=== PATIENT | male | born 1975 | race Caucasian/White ===

== ENCOUNTER 2019-06-02 05:14 | Inpatient (IN) | payer MEDICAID ==
[~2019-06-02] VITALS: Ht 177.8 cm; Wt 86.4 kg
[2019-06-02 05:28] VITALS: BP 103/63
[2019-06-02] MEDS ORDERED: KETOROLAC 30 MG/1 ML IV PRN (06:00)
[2019-06-02] MEDS ORDERED: NICOTINE 14MG/24 HR PATCH.TD24 TD SCH (06:00)
[2019-06-02] MEDS ORDERED: HYDROmorphone 2 MG/ML, 1ML IVPush PRN (06:00)
[2019-06-02] MEDS ORDERED: ACETAMINOPHEN 325 MG TABLET PO PRN (06:00)
[2019-06-02] MEDS ORDERED: ONDANSETRON 2MG/ML, 2ML IVPush PRN (06:00)
[2019-06-02] MEDS: LACTATED RINGERS 1,000 ML IV SCH ×2 (06:08→16:00)
[2019-06-02 06:37] LABS: BASOPHILS # (AUTO) 0.05 x10^3/uL (0-0.1); BASOPHILS % (AUTO) 1 % (0-1); EOSINOPHILS % (AUTO) 4 % (1-7); LYMPHOCYTES # (AUTO) 1.63 x10^3/uL (1-3.4); LYMPHOCYTES % (AUTO) 32 % (22-44); MD NO; MEAN CORPUSCULAR HEMOGLOBIN 32.5 pg (27.5-34.5); MEAN CORPUSCULAR HGB CONC 33.6 g/dL (33.2-36.2); MEAN CORPUSCULAR VOLUME 96.8 fL (81-97); MEAN PLATELET VOLUME 7.4 fL (7.4-10.4); MONOCYTES # (AUTO) 0.55 x10^3/uL (0.2-0.8); MONOCYTES % (AUTO) 11 % (2-9); NEUTROPHILS # (AUTO) 2.69 x10^3/uL (1.8-6.8); NEUTROPHILS % (AUTO) 53 % (42-75); PLATELET COUNT 215 x10^3/uL (130-400); RED BLOOD COUNT 4.51 x10^6/uL (4.38-5.82); RED CELL DISTRIBUTION WIDTH 12.9 % (9.4-14.8)
[2019-06-02 06:46] LABS: INTERNATIONAL NORMALIZED RATIO 1.02 (0.93-1.1); PROTHROMBIN TIME 10.8 Seconds (9.6-11.5)
[2019-06-02 06:48] LABS: ALANINE AMINOTRANSFERASE 357 U/L (12-78); ALBUMIN 3.2 g/dL (3.4-5.0); ANION GAP 5 mmol/L (5-15); CALCIUM 8.3 mg/dL (8.5-10.1); CHLORIDE 112 mmol/L (98-107); CREATININE 0.92 mg/dL (0.7-1.3)
[2019-06-02 06:51] LABS: ALKALINE PHOSPHATASE 120 U/L (45-117); BILIRUBIN,TOTAL 2.9 mg/dL (0.2-1.0); TOTAL PROTEIN 6.4 g/dL (6.4-8.2)
[2019-06-02 07:06] VITALS: BP 108/64
[2019-06-02] MEDS: METRONIDAZOLE PMX 500MG/100ML 100 ML IV SCH ×2 (09:21→16:34)
[2019-06-02] MEDS ORDERED: GLUCAGON 1 MG ONE (09:57)
[2019-06-02] MEDS ORDERED: OMNIPAQUE 350 MG/ML, 50 ML BOTTLE ONE (11:00)
[2019-06-02] MEDS ORDERED: ONDANSETRON 2MG/ML, 2ML ONE (11:04)
[2019-06-02] MEDS ORDERED: MIDAZOLAM 1 MG/ML, 2ML ONE (11:04)
[2019-06-02] MEDS ORDERED: KETOROLAC 30 MG/1 ML ONE (11:04)
[2019-06-02] MEDS ORDERED: SUGAMMADEX 200 MG/2 ML IVPush ONE (11:04)
[2019-06-02] MEDS ORDERED: ROCURONIUM 10MG/ML,5ML ONE (11:04)
[2019-06-02] MEDS ORDERED: PROPOFOL 10 MG/ML, 20ML ONE (11:04)
[2019-06-02] MEDS ORDERED: DEXAMETHASONE 4 MG/ML, 1ML ONE (11:04)
[2019-06-02] MEDS ORDERED: FENTANYL PF 250 MCG/5ML ONE (11:05)
[2019-06-02] MEDS ORDERED: FENTANYL PF 100 MCG/2ML IV PRN (12:00)
[2019-06-02] MEDS ORDERED: hydrALAzine 20 MG/ML, 1ML IV PRN (12:00)
[2019-06-02] MEDS ORDERED: CEFTRIAXONE PMX 1GM/50ML 50 ML IV SCH (12:00)
[2019-06-02] MEDS ORDERED: HALOPERIDOL 5 MG/ML IV PRN (12:00)
[2019-06-02] MEDS ORDERED: ALBUTEROL SULFATE 2.5 MG/3 ML NPPB PRN (12:00)
[2019-06-02] MEDS ORDERED: HYDROmorphone 1 MG/ML, 1ML INJ IVPush PRN (12:00)
[2019-06-02] MEDS ORDERED: MEPERIDINE/PF 25MG/ML,1ML IVPush PRN (12:00)
[2019-06-02] MEDS ORDERED: OXYcodone 5 MG/5 ML ORAL.SOL UDC PO PRN (12:00)
[2019-06-02 14:52] VITALS: BP 125/79
[2019-06-02] MEDS ORDERED: CEFD300C37 PO (15:08)
[2019-06-02] MEDS ORDERED: FLU VACC QS2019-20 36MOS UP/PF 0.5 ML IM-VACC ONE (16:00)
== END 2019-06-02 17:25 | disposition home or self-care (01) ==
LOC: 4NE 05:14
PROVIDERS: ADMIT Family Medicine; ATTEND Family Medicine
PROC: BF141ZZ Fluoroscopy of Gallbladder, Bile Ducts and Pancreatic Ducts using Low Osmolar Contrast (ICD-10-PCS; 2019-06-02)
PROC: 0FC98ZZ Extirpation of Matter from Common Bile Duct, Via Natural or Artificial Opening Endoscopic (ICD-10-PCS; principal; 2019-06-02 11:00)
DX: K80.63 Calculus of gallbladder and bile duct with acute cholecystitis with obstruction (principal); F17.210 Nicotine dependence, cigarettes, uncomplicated; K59.00 Constipation, unspecified; Z88.5 Allergy status to narcotic agent
CPT/HCPCS: 36415; 74328; 80053; 83690; 85025; 85610; 90686; G0378; J0696; J1100; J1885; J2250; J2405; J2704; J3010; Q9967; C1769; J1610; J7120